=== PATIENT | female | born 1960 | race Caucasian/White ===

== ENCOUNTER 2017-03-27 07:45 | Outpatient (CLI) | payer OTHER, MEDICARE ==
--- NOTE | 2017-03-27 14:02 | NM ---
NUCLEAR MEDICINE HIDA SCAN WITH EJECTION FRACTION: History R93.2. COMPARISON: None. FINDINGS: Examination is performed after the intravenous administration of 5.4 mCi Technetium 99mmebrofenin. There is normal hepatic uptake. Normal uptake within the gallbladder and common bile duct. Bowel is seen quickly. On evaluation of ejection fraction, the Ensure was given orally. The ejection fraction was 23% after 26 minutes. IMPRESSION: 1. Normal appearance of the gallbladder and common bile duct. 2. Abnormally low ejection fraction of 23 % after 26 minutes. POS: [id number]
== END 2017-03-27 07:46 | disposition home or self-care (01) ==
LOC: NM 07:45
PROVIDERS: ATTEND Internal Medicine
DX: R93.2 Abnormal findings on diagnostic imaging of liver and biliary tract (principal)
CPT/HCPCS: 78227; A9537

== ENCOUNTER 2017-03-31 08:00 | Outpatient (CLI) | payer OTHER, MEDICARE | END 2017-03-31 08:01 | disposition home or self-care (01) | LOC: BICMAMMO 08:00 | PROVIDERS: ATTEND Physician Assistant Surgical | DX: Z53.9 Procedure and treatment not carried out, unspecified reason (principal) ==

== ENCOUNTER 2017-06-12 09:27 | Outpatient (CLI) | payer MEDICARE, OTHER | END 2017-06-12 09:28 | disposition home or self-care (01) | LOC: BICMAMMO 09:27 | PROVIDERS: ATTEND Physician Assistant Surgical | DX: M81.8 Other osteoporosis without current pathological fracture (principal); R10.11 Right upper quadrant pain; R10.12 Left upper quadrant pain; R11.2 Nausea with vomiting, unspecified; R12 Heartburn; K82.8 Other specified diseases of gallbladder | CPT/HCPCS: 76700; 77080 ==

== ENCOUNTER 2019-04-06 12:00 | Outpatient (CLI) | payer MEDICARE ==
--- NOTE | 2019-04-06 12:19 | RAD ---
XR Chest Pa Lat @ POB History: Dyspnea Comparison: None. Findings: Mild atelectasis left lung base. Remainder of the lungs are clear. No pneumothorax. No effu maan. Moderate dextro scoliosis lower thoracic spine. No acute osseous abnormality. Impression: No acute intrathoracic abnormality
== END 2019-04-06 12:01 | disposition home or self-care (01) ==
LOC: RAD 12:00
PROVIDERS: ATTEND Internal Medicine Critical Care Medicine
DX: R06.00 Dyspnea, unspecified (principal)
CPT/HCPCS: 71046

== ENCOUNTER 2020-01-09 18:00 | Outpatient (CLI) | payer MEDICARE | END 2020-01-09 18:01 | disposition home or self-care (01) | LOC: SLEEPLAB 18:00 | PROVIDERS: ATTEND Internal Medicine Critical Care Medicine | DX: G47.33 Obstructive sleep apnea (adult) (pediatric) (principal); R53.83 Other fatigue; R06.83 Snoring; G47.00 Insomnia, unspecified; R09.02 Hypoxemia; R00.1 Bradycardia, unspecified | CPT/HCPCS: 95806 ==

== ENCOUNTER 2020-03-02 19:30 | Outpatient (CLI) | payer MEDICARE | END 2020-03-02 19:31 | disposition home or self-care (01) | LOC: SLEEPLAB 19:30 | PROVIDERS: ATTEND Internal Medicine Critical Care Medicine | DX: G47.33 Obstructive sleep apnea (adult) (pediatric) (principal); R53.83 Other fatigue; R09.02 Hypoxemia; G47.8 Other sleep disorders | CPT/HCPCS: 95810 ==